=== PATIENT | female | born 1970 | race Caucasian/White ===

== ENCOUNTER 2018-04-23 16:51 | Inpatient (IN) | payer MEDICAID ==
[~2018-04-23] VITALS: Ht 154.9 cm; Wt 63.0 kg
[2018-04-23 16:51] VITALS: BP 143/68
--- NOTE | 2018-04-23 16:52 | NUR ---
Patient wheelchair assisted to bed 7.
--- NOTE | 2018-04-23 17:05 | NUR ---
PATIENT PRESENTS TO ED WITH THE CHIEF C/O NON-RADIATING EPIGASTRIC PAIN SINCE YESTERDAY. N/V X1. NO BLLOD IN VOMIT. DENIES ANY DIARRHEA. ABDOMEN SOFT, ROUND AND NON-TENDER. ACTIVE BOWEL SOUND. SKIN IS PINK/WARM/DRY. AAOX4 WITH EVEN AND STEADY GAIT. LUNGS CLEAR BL. HR EVEN AND REGULAR; PT DENIES ANY FEVER, CP, SOB, OR COUGH AT THIS TIME. PATIENT STATES PAIN OF 10/10 AT THIS TIME. PLACED PT ON MONITOR. SR ON MONITOR. VSS. PATIENT POSITIONED FOR COMFORT. HOB ELEVATED. BEDRAILS UP X2. BED DOWN. ER MD MADE AWARE OF PT STATUS.
--- NOTE | 2018-04-23 17:19 | NUR ---
PT BEING SEEN BY DR. BADILLO AT THIS TIME.
[2018-04-23] MEDS ORDERED: NACL 0.9% 1,000 ML IV ONE (17:22)
[2018-04-23] MEDS ORDERED: NACL 0.9% 1,000 ML IV SCH (17:22)
[2018-04-23] MEDS ORDERED: MORPHINE SULFATE 4 MG/ML SYR IVP ONE (17:25)
[2018-04-23] MEDS ORDERED: KETOROLAC 30 MG/ML VIAL IVP ONE (17:25)
[2018-04-23 17:48] LABS: BASOPHILS # (AUTO) 0.1 K/uL (0.00-0.22); BASOPHILS % (AUTO) 0.4 % (0.0-2.0); EOSINOPHILS % (AUTO) 0.2 % (0.0-4.0); HEMATOCRIT 42.3 % (36-48); HEMOGLOBIN 14.3 g/dL (12.0-16.0); LYMPHOCYTES # (AUTO) 1.6 K/uL (2.5-16.5); LYMPHOCYTES % (AUTO) 9.4 % (20.5-51.1); MEAN CORPUSCULAR HEMOGLOBIN 28 pg (27-31); MEAN CORPUSCULAR HGB CONC 34 g/dL (33-37); MEAN CORPUSCULAR VOLUME 83.4 fL (80-94); MONOCYTES # (AUTO) 0.6 K/uL (0.8-1.0); MONOCYTES % (AUTO) 3.8 % (1.7-9.3); NEUTROPHILS # (AUTO) 14.4 K/uL (1.8-7.7); NEUTROPHILS % (AUTO) 86.2 % (42.2-75.2); PLATELET COUNT (AUTO) 299 K/uL (140-450); RED BLOOD CELL COUNT(AUTO) 5.07 MIL/uL (4.20-5.40); RED CELL DISTRIBUTION WIDTH 13.1 % (11.6-13.7); WHITE BLOOD COUNT (AUTO) 16.7 K/uL (4.8-10.8)
[2018-04-23 17:50] LABS: APPEARANCE,URINE SL CLOUDY (CLEAR); BILIRUBIN,URINE NEGATIVE (NEGATIVE); BLOOD, URINE NEGATIVE (NEGATIVE); COLOR,URINE YELLOW (YELLOW); LEUKOCYTE ESTERASE ,URINE NEGATIVE (NEGATIVE); NITRITE, URINE NEGATIVE (NEGATIVE); UGLUCOSE NEGATIVE (NEGATIVE)
[2018-04-23 17:58] LABS: CARBON DIOXIDE 29.2 mmol/L (21-32); CREATININE 0.8 mg/dL (0.6-1.3); POTASSIUM 3.2 mmol/L (3.5-5.1)
[2018-04-23 18:06] LABS: ALBUMIN 3.5 g/dL (3.4-5.0); TOTAL BILIRUBIN 0.4 mg/dL (0.0-1.0)
[2018-04-23] MEDS ORDERED: PIPERACILLIN/TAZOBACTAM 3.375 GM in DEXTROSE 5% 50 ML IV ONE (19:10)
--- NOTE | 2018-04-23 19:13 | NUR ---
REPORT GIVEN TO ENVIRONMENTAL EMERGENCIES PLANNER RN FOR CONTINUITY OF CARE.
[2018-04-23] MEDS ORDERED: PIPERACILLIN/TAZOBACTAM 3.375 GM VIAL IV ONE (19:24)
[2018-04-23] MEDS ORDERED: ONDANSETRON 4 MG/2 ML VIAL IM/IVP PRN (19:25)
[2018-04-23] MEDS ORDERED: ACETAMINOPHEN 325 MG TAB PO PRN (19:25)
[2018-04-23] MEDS ORDERED: HYDROcodone/APAP 7.5/325 MG 1 TAB PO PRN (19:25)
[2018-04-23] MEDS ORDERED: DOCUSATE SODIUM 100 MG GELCAP PO PRN (19:25)
--- NOTE | 2018-04-23 19:29 | NUR ---
Dr. Clarke evaluating patient at bedside.
--- NOTE | 2018-04-23 19:34 | NUR ---
X-Ray at bedside.
[2018-04-23 19:48] LABS: BARBITURATE, URINE NEG. ng/ml (NEG <=200); BENZODIAZEPINE, URINE NEG. ng/mL (NEG <=200); CANNABINOID, URINE NEG. ng/mL (NEG <=50); COCAINE, URINE NEG. ng/mL (NEG <=300); OPIATE, URINE NEG. ng/mL (NEG <=2000); PHENCYCLIDINE SCREEN,URINE NEG. ng/mL (NEG <=25)
[2018-04-23 19:55] LABS: CHOL/HDL RATIO 3.2 (1-4.5); MAGNESIUM 1.5 mg/dL (1.8-2.4); PHOSPHORUS 2.5 mg/dL (2.5-4.9); THYROID STIMULATING HORMONE 0.76 uIU/mL (0.34-3.74)
[2018-04-23 19:57] LABS: PROTHROMBIN TIME 9.9 secs (10.8-13.4)
[2018-04-23] MEDS ORDERED: AMLO10TA PO (19:58)
[2018-04-23] MEDS ORDERED: PRE.3 PO (19:58)
[2018-04-23] MEDS ORDERED: ENAL-197 PO (19:58)
--- NOTE | 2018-04-23 20:00 | NUR ---
Patient will be admitted to care of DR. HERNANDEZ. Admited to [facility]B/ MED SURG TELE Belongings list completed. Report to CHATA SCHNEIDER.
--- NOTE | 2018-04-23 20:02 | NUR ---
ADMITTED A 47 Y/O FEMALE FROM [facility] WITH C/C OF ABDOMINAL PAIN. PATIENT ABLE TO TRANSFERRED FROM [facility] TO BED WITH STAND BY ASSIST. PATIENT IS TRISTANIAN SPEAKING, AA0X4, ABLE TO RECOGNIZES HER NEEDS. EXPLAINED PLAN OF CARE THOUGH THE HELP OF HER SON. MRSA NASAL SWAB DONE. SKIN INTACT. BED IN LOW LOCKED POSITION. CALL LIGHT WITHIN REACH. EXPLAINED TO USE CALL LIGHT FOR ASSISTANCE.PERSONAL BELONGINGS AT BEDSIDE. ROUTINE ADMISSION CARE DONE AND CARRY OUT ORDERS. ALL NEEDS ATTENDED. BLANKET GIVEN FOR COMFORT. WILL CONTINUE TO MONITOR.
[2018-04-23] MEDS ORDERED: KCL 20 MEQ/WATER INJ PREMIX 200 ML IV ONE (20:10)
[2018-04-23] MEDS ORDERED: KETOROLAC 15 MG/ML VIAL IVP PRN (20:10)
[2018-04-23] MEDS: NACL 0.9% 1,000 ML IV SCH (20:37)
--- NOTE | 2018-04-23 23:20 | NUR ---
PATIENT REFUSED TO FOR NGT INSERTION. NOTIFIED DR. GARCIA. PATIENT DENIES PAIN. NO VOMITING SINCE ADMISSION. PATIENT SEEN COMFORTABLY ON BED. CALL LIGHT WITHIN REACH. BLANKET GIVEN FOR COMFORT. BED IN LOW LOCK POSITION. EXPLAINED TO USE CALL LIGHTS FOR ASSISTANCE. NO S/S OF DISTRESS NOTED. WILL CONTINUE TO MONITOR.
--- NOTE | 2018-04-23 23:50 | NUR ---
APPLIED SCD ON BOTH LOWER EXT. TOLERATED WELL. ALL NEEDS ATTENDED.
[2018-04-24] VITALS: BP 107/64
--- NOTE | 2018-04-24 | NUR ---
V/ STAKEN AND RECORDED. ALL NEEDS ATTENDED. BED IN LOW LOCK POSITION. CALL LIGHT WITHIN REACH. NO S/S OF DISTRESS NOTED. WILL CONTINUE TO MONITOR.
--- NOTE | 2018-04-24 02:00 | NUR ---
SEEN PATIENT ASLEEP BUT EASILY AROUSABLE. DENIES PAIN. BED IN LOW LOCK POSITION. CALL LIGHT WITHIN REACH. WILL CONTINUE TO MONITOR.
[2018-04-24] MEDS: NACL 0.9% 1,000 ML IV SCH ×2 (05:23→15:23)
[2018-04-24] MEDS ORDERED: MAG SULF 2000 MG/WATER PREMIX 50 ML IV SCH (05:30)
[2018-04-24] MEDS: PANTOPRAZOLE 40 MG INJ VIAL IVP SCH (06:42)
--- NOTE | 2018-04-24 07:20 | NUR ---
REPORT GIVEN TO AM SHIFT RN AT BEDSIDE. CALL LIGHT WITHIN REACH. BED IN LOW LOCK POSITION. ALL NEEDS ATTENDED.PATIENT IN STABLE CONDITION.
--- NOTE | 2018-04-24 07:21 | NUR ---
RECEIVED BEDSIDE REPORT FROM WEIGH BOSS NURSE. PATIENT AAOX4. ON ROOM AIR, NO DISTRESS NOTED. SKIN INTACT. IV ON R AC 22 G INFUSING NS AT 100, IV ASYMPTOMATIC, PATENT AND INTACT. PATIENT ON MED SURGE AND STANDARD PRECAUTIONS IN PLACE. BED IN LOW POSITION, CALL LIGHT WITHIN REACH. WILL CONTINUE TO MONITOR.
[2018-04-24 07:40] LABS: BASOPHILS # (AUTO) 0.1 K/uL (0.00-0.22); BASOPHILS % (AUTO) 0.5 % (0.0-2.0); EOSINOPHILS # (AUTO) 0.1 K/uL (0-0.4); EOSINOPHILS % (AUTO) 0.9 % (0.0-4.0); HEMATOCRIT 36.8 % (36-48); HEMOGLOBIN 12.5 g/dL (12.0-16.0); LYMPHOCYTES # (AUTO) 2.2 K/uL (2.5-16.5); LYMPHOCYTES % (AUTO) 19.1 % (20.5-51.1); MEAN CORPUSCULAR HEMOGLOBIN 29 pg (27-31); MEAN CORPUSCULAR HGB CONC 34 g/dL (33-37); MEAN CORPUSCULAR VOLUME 84.4 fL (80-94); MONOCYTES # (AUTO) 0.6 K/uL (0.8-1.0); MONOCYTES % (AUTO) 5.7 % (1.7-9.3); NEUTROPHILS # (AUTO) 8.4 K/uL (1.8-7.7); NEUTROPHILS % (AUTO) 73.8 % (42.2-75.2); PLATELET COUNT (AUTO) 231 K/uL (140-450); RED BLOOD CELL COUNT(AUTO) 4.36 MIL/uL (4.20-5.40); RED CELL DISTRIBUTION WIDTH 13.4 % (11.6-13.7); WHITE BLOOD COUNT (AUTO) 11.4 K/uL (4.8-10.8)
[2018-04-24 08:00] VITALS: BP 118/67
[2018-04-24] MEDS: amLODIPine 5 MG TAB PO SCH (08:19)
[2018-04-24] MEDS: ENALAPRIL 10 MG TAB PO SCH (08:20)
--- NOTE | 2018-04-24 08:26 | NUR ---
ADMINISTERED SCHEDULED MEDS TO PATIENT. PATIENT TOLERATED WELL. WILL CONTINUE TO MONITOR.
[2018-04-24 08:35] LABS: ANION GAP 9.1 (8-16); CARBON DIOXIDE 26.9 mmol/L (21-32); CREATININE 0.6 mg/dL (0.6-1.3)
[2018-04-24 08:39] LABS: MAGNESIUM 1.7 mg/dL (1.8-2.4); PHOSPHORUS 2.8 mg/dL (2.5-4.9)
[2018-04-24] MEDS ORDERED: MAGNESIUM OXIDE 400 MG TAB PO SCH (08:45)
--- NOTE | 2018-04-24 10:46 | NUR ---
PATIENT SLEEPING. NO COMPLAINTS AT THIS TIME, ON ROOM AIR. WILL CONTINUE TO MONITOR
[2018-04-24] MEDS: METOCLOPRAMIDE 10 MG/2 ML INJ VIAL IVP SCH ×2 (13:38→20:49)
--- NOTE | 2018-04-24 13:49 | NUR ---
FAMILY AT BEDSIDE. ON ROOM AIR, NO DISTRESS NOTED AND NO COMPLAINTS. WILL CONTINUE TO MONITOR. Addendum: 04/24/18 at 1351 by Ayanna Cueto RN DROPPED OFF 3 HOME MEDICATIONS: PREMARIN 0.625 MG, AMLODIPINE 10 MG, AND ENALAPRIL 20 MG TO PHARMACY.
[2018-04-24 16:00] VITALS: BP 104/70
--- NOTE | 2018-04-24 16:00 | NUR ---
PATIENT CONVERSING WITH FAMILY AT BEDSIDE. NO COMPLAINTS AT THIS TIME. WILL CONTINUE TO MONITOR.
--- NOTE | 2018-04-24 18:43 | NUR ---
FAMILY AT BEDSIDE. PATIENT ON ROOM AIR, NO DISTRESS NOTED. WILL CONTINUE TO MONITOR.
--- NOTE | 2018-04-24 19:26 | NUR ---
GAVE REPORT TO JENNIE GALVAN. PATIENT ENDORSED IN STABLE CONDITION, FAMILY AT BEDSIDE.
--- NOTE | 2018-04-24 19:27 | NUR ---
RECD. RESTING IN BED, AWAKE, A/OX4. RESPIRATION EVEN AND UNLABORED. IV OF NS INFUSING AT 100 ML/HR, LEFT AC G22. CONVERSING WITH VISITORS AT THE BEDSIDE. PLAN OF CARE FOR THE SHIFT DISCUSSED. VERBALIZED UNDERSTANDING. DENIES PAIN 0/10.
--- NOTE | 2018-04-24 21:00 | NUR ---
RESTING IN BED, WATCHING TV. JELLO AND PUDDING GIVEN REQUESTED.
--- NOTE | 2018-04-24 22:00 | NUR ---
Patient's Plan of Care was discussed and reviewed with [facility]: COLE FRANKLIN
[2018-04-25] VITALS: BP 92/54
--- NOTE | 2018-04-25 | NUR ---
SLEEPING COMFORTABLY IN BED, DENIES PAIN 0/10.
[2018-04-25] MEDS: NACL 0.9% 1,000 ML IV SCH ×2 (01:34→11:36)
[2018-04-25] MEDS: METOCLOPRAMIDE 10 MG/2 ML INJ VIAL IVP SCH (04:23)
--- NOTE | 2018-04-25 04:34 | NUR ---
RESTING IN BED, NO COMPLAINT OF ABDOMINAL PAIN, 0/10.
[2018-04-25] MEDS: PANTOPRAZOLE 40 MG INJ VIAL IVP SCH (05:47)
[2018-04-25 06:37] LABS: BASOPHILS % (AUTO) 0.5 % (0.0-2.0); EOSINOPHILS # (AUTO) 0.2 K/uL (0-0.4); EOSINOPHILS % (AUTO) 3.5 % (0.0-4.0); HEMATOCRIT 36.1 % (36-48); HEMOGLOBIN 12.1 g/dL (12.0-16.0); LYMPHOCYTES # (AUTO) 2.5 K/uL (2.5-16.5); LYMPHOCYTES % (AUTO) 35.4 % (20.5-51.1); MEAN CORPUSCULAR HEMOGLOBIN 28 pg (27-31); MEAN CORPUSCULAR HGB CONC 34 g/dL (33-37); MEAN CORPUSCULAR VOLUME 84.5 fL (80-94); MONOCYTES # (AUTO) 0.6 K/uL (0.8-1.0); NEUTROPHILS # (AUTO) 3.7 K/uL (1.8-7.7); NEUTROPHILS % (AUTO) 52.6 % (42.2-75.2); PLATELET COUNT (AUTO) 218 K/uL (140-450); RED BLOOD CELL COUNT(AUTO) 4.27 MIL/uL (4.20-5.40); RED CELL DISTRIBUTION WIDTH 13.1 % (11.6-13.7); WHITE BLOOD COUNT (AUTO) 7.1 K/uL (4.8-10.8)
[2018-04-25 06:40] LABS: ANION GAP 9.4 (8-16); CARBON DIOXIDE 28.3 mmol/L (21-32); CREATININE 0.8 mg/dL (0.6-1.3); POTASSIUM 3.7 mmol/L (3.5-5.1)
--- NOTE | 2018-04-25 06:41 | NUR ---
NO COMPLAINT OF ABDOMINAL PAIN DURING SHIFT. CONDITION REMAIN STABLE. WILL ENDORSE TO AM NURSE FOR CONTINUITY OF CARE.
[2018-04-25 06:57] LABS: MAGNESIUM 1.8 mg/dL (1.8-2.4); PHOSPHORUS 3.3 mg/dL (2.5-4.9)
--- NOTE | 2018-04-25 07:10 | NUR ---
RECEIVED PT REPORT FROM CLINIC COORDINATOR NURSE, PT IS AWAKE AND ALERT, RUSSIAN SPEAKING ONLY. NO S/S OF ACUTE DISTRESS OR SOB NOTED. NO C/O ABD PAIN AT THIS TIME. PT IS ON ROOM AIR, SKIN INTACT. IV SITE IS ON THE L HAND, 22 GAUGE, INFUSING NS 100 ML/HR. PT IS AMBULATORY AND ON REGULAR DIET. CALL LIGHT WITHIN REACH. WILL CONTINUE TO MONITOR.
[2018-04-25 08:00] VITALS: BP 117/75
--- NOTE | 2018-04-25 08:34 | NUR ---
PATIENT HAS BEEN SCREENED AND CATEGORIZED MODERATE NUTRITION RISK. PATIENT WILL BE SEEN WITHIN 3-5 DAYS OF ADMISSION. 04/26/18STU [address]
[2018-04-25] MEDS ORDERED: ONDA4ODT2 PO (09:23)
[2018-04-25] MEDS: amLODIPine 5 MG TAB PO SCH (10:11)
[2018-04-25] MEDS: ENALAPRIL 10 MG TAB PO SCH (10:12)
--- NOTE | 2018-04-25 13:05 | NUR ---
PT HAS DISCHARGED. PT AND HER SON WERE GIVEN DC INSTRUCTIONS AND MADE AWARE OF ELECTRONIC PRESCRIPTION SENT TO HER PHARMACY. PT VERBALIZED UNDERSTANDING AND SIGNED THE DC DOCUMENTS. PT'S MEDS WERE RETURNED TO HER FROM THE PHARMACY. IV SITE AND WRIST BANDS REMOVED. PT LEFT IN STABLE CONDITION WITH HER SON, WITH ALL HER BELONGINGS. SHE REFUSED THE FLU SHOT UPON DC.
== END 2018-04-25 13:05 | disposition home or self-care (01) | DRG 425 ==
LOC: MED 16:51 → MTU 19:25
PROVIDERS: ADMIT General Practice; ATTEND General Practice
DX: E87.6 Hypokalemia (principal); E83.42 Hypomagnesemia; N28.1 Cyst of kidney, acquired; D72.829 Elevated white blood cell count, unspecified; K21.9 Gastro-esophageal reflux disease without esophagitis; I10 Essential (primary) hypertension; R73.9 Hyperglycemia, unspecified; F43.9 Reaction to severe stress, unspecified; Z53.29 Procedure and treatment not carried out because of patient's decision for other reasons; E66.3 Overweight; Z68.26 Body mass index [BMI] 26.0-26.9, adult; Z71.3 Dietary counseling and surveillance; Z90.710 Acquired absence of both cervix and uterus; Z83.3 Family history of diabetes mellitus; Z78.0 Asymptomatic menopausal state
CPT/HCPCS: 36415; 71045; 74250; 80048; 80053; 80305; 81003; 81025; 82150; 83036; 83690; 83735; 83880; 84100; 84443; 84484; 84703; 85025; 85610; 85730; 87081; 93005; 96361; 96365; 96375; 99285; C9113; J1885; J2270; J2543; J2765; J3475; J3480; J7030; Q0092